=== PATIENT | female | born 1980 | race Caucasian/White ===

== ENCOUNTER 2017-07-12 07:29 | Day surgery (SDC) | payer OTHER, SELFPAY ==
[2017-07-12] VITALS (7 sets, daily range): BP systolic 111–128; BP diastolic 63–74; PULSE 69–78; RESP 16–18; TEMP 36.1–36.6; O2SAT 95–99; BMI 36.9
--- NOTE | 2017-07-12 | IMM_PTH ---
PATIENT: MIGUEL ÁNGEL AVILA LOC: EN U#:[id number] AGE/SX: 37/F ROOM: RE07/12/[address]: Dr. Pete Luna MD : 1980 BED: DIS: 07/12/2017 SPEC #: [id number] RECD: 07/15/17 12:46 STATUS: AUGUSTINA BRENTON #: [id number] SOILA: 07/12/17 00:[address]: Pete Luna DEPT: IMMUNOHISTOCHEMISTRY RECD BY: Lashay Estrada ENTERED: 07/15/17 12:47 SP TYPE: IMMUNO OTHR DR: Dr. Jus Luna III, MD Tissues: B - Stomach, NOS Procedures: H Pylori (initial) PHYSICIAN & INSTITUTION [place] [address] SPECIMEN INFORMATION: Tissue Source: B ? Antral biopsy Clinical Info: Abdominal pain Specimen Number: [id number] CPT code: 38152 METHODOLOGY: Deparaffinized sections of prefer/formalin-fixed tissue or PAP/DQ stained slides are incubated with monoclonal/polyclonal antibodies/oligonucleotide probes. Localization is made via biotin free immunoperoxidase method. Appropriate controls are performed and reacted as expected. Results on target cell population are indicated in the following table: RESULTS: ANTIBODY / CLONE RESULT Block B H Pylori (polyclonal) negative These tests were developed and their performance characteristics determined by [facility]. They may not have been cleared or approved by the U.S. Food and Drug Administration. The FDA has determined that such clearance or approval is not necessary. INTERPRETATION: B. Antral biopsy: Negative for Helicobacter pylori organisms. SJ:trino 07/16/17
--- NOTE | 2017-07-12 09:17 | EGD_PTH ---
PATIENT: MIGUEL ÁNGEL AVILA LOC: [facility] U#:[id number] AGE/SX: 37/F ROOM: RE07/12/[address]: Dr. Pete Luna MD : 1980 BED: DIS: 07/12/2017 SPEC #: [id number] RECD: 07/12/17 11:06 STATUS: AUGUSTINA BRENTON #: [id number] SOILA: 07/12/17 09:[address]: Pete Luna DEPT: SURGICAL PATHOLOGY RECD BY: Sesar Tafoya ENTERED: 07/12/17 12:01 SP TYPE: EGD BIOPSY OT DR: Dr. Jus Luna III, MD Tissues: A - Duodenum, NOS B - Gastric mucous membrane C - Esophageal mucous membrane Procedures: Surgery Specimen Level IV HEADER OPERATION: EGD PRE-OP DIAGNOSIS: Abdominal pain TISSUE SUBMITTED: A ? Duodenal biopsy, B ? Antral biopsy for H. pylori & path, C ? Distal esophageal biopsy MICROSCOPIC DIAGNOSIS A. Duodenal biopsy: Fragment of duodenal mucosa, no pathologic diagnosis. B. Antral biopsy: Mild gastritis. See microscopic description and comment. C. Distal esophageal biopsy: Fragment of squamous epithelium, no pathologic diagnosis. SJ:trino 07/15/17 COMMENT B. The results of immunohistochemistry for Helicobacter pylori will be reported separately ([id number]). MICROSCOPIC DESCRIPTION Slides are reviewed. B. The specimen shows fragments of gastric mucosa with chronic inflammatory cell infiltrates in the lamina propria consisting of lymphocytes and plasma cells, consistent with mild chronic gastritis. GROSS DESCRIPTION A - Received in fixative is one container labeled with the patient's name and designated duodenal biopsy. The specimen consists of one irregular fragment of light montoya soft tissue that measures 0.3 x 0.3 x 0.1 cm. The specimen is totally submitted in one cassette. B - Received in fixative is one container labeled with the patient's name and designated antral biopsy. The specimen consists of one irregular fragment of light montoya soft tissue that measures 0.3 x 0.3 x 0.1 cm. The specimen is totally submitted in one cassette. C - Received in fixative is one container labeled with the patient's name and designated distal esophageal biopsy. The specimen consists of one irregular fragment of light montoya soft tissue that measures 0.6 x 0.2 x 0.1 cm. The specimen is totally submitted in one cassette. / MARYA:trino 07/12/17 TC:3 CPT: 41564 x3
--- NOTE | 2017-07-12 09:35 | PCM.OPRPT ---
Problem List (1) Abdominal pain Status: Acute Qualifiers: Abdominal location: generalized Qualified Code(s): R10.84 - Generalized abdominal pain Report of Operation Date of Procedure: 07/12/17 Pre-Operative Diagnosis: Abdominal pain Post-Operative Diagnosis: Mild duodenitis, mild gastritis, hiatal hernia, possible distal esophagitis. Diamond colonic diverticulosis. No evidence of active colonic inflammation Surgery/Procedure Performed:: Esophagogastroduodenoscopy with biopsies. Colonoscopy Description of Surgical Findings:: Amount and informed consent was obtained. 87-year-old female was taken to the endoscopy suite. Her oropharynx anesthetized with Cetacaine. Throughout both the upper and lower procedure she received total of 150 mg Demerol and 5 mg of Versed is intravenous sedation. Under direct physician videogastroscope was inserted. The proximal mid distal esophagus did not appear to be remarkable. The EG junction was at 38 cm. She is a moderately large hiatal hernia. The scope was advanced into the stomach. Diffuse mild erythema of the entire stomach but particularly the antrum was noted. The scope was advanced through the pylorus. The first and second portions of the duodenum were inspected. Some friability of the duodenum noted. Cold forcep biopsy was obtained of the duodenum. The scope was withdrawn back to the stomach and biopsy was obtained of the antral area. The scope was retroflexed the hiatal hernia noted. Photographs were obtained. The scope was placed back in antegrade viewing position. Greater and lesser curvatures were inspected. There was no evidence of any ulceration or active bleeding. Excess fluid and air was aspirated free the scope was withdrawn to the distal esophagus and right at the Z line distal esophageal biopsies were obtained. Excess fluid and air was aspirated free the scope was withdrawn without additional abnormality. The patient was kept in left lateral decubitus position. Digital rectal exam performed. Normal anal tone. No mass lesions. Flexible colonoscope inserted in the rectum and quite readily advanced through the colon. Some minimal transabdominal pressure was required to get the scope to go to the cecum. The cecum and ileocecal valve area was nicely achieved. Bowel prep was good. The scope was carefully withdrawn from the ascending transverse descending and sigmoid colon. Extensive pancolonic diverticulosis was identified. I did not see any evidence of acute inflammation. The scope was retroflexed within the rectum anorectal verge inspected this was not remarkable. The rectosigmoid mucosa appeared normal. Excess fluid nurse aspirated free the procedure was completed with the patient tolerating it well. Impression Moderately large hiatal hernia. Mild duodenitis. Diamond gastric colitis. Possible mild distal esophagitis. Biopsies pending. Pancolonic diverticulosis with concentrated disease in the sigmoid The patient will be notified of pathology results as they become available. She is already on a proton pump inhibitor and sucralfate for her upper GI issues. I did not identify any active bleeding. I did not identify any active colonic disease. She has not had a previous colonoscopy. Next screening colonoscopy would be at age 52. Cc: Dr. Jus Luna, III Colonoscopy Meds were given 0911. The scope was inserted 0915. The cecum was reached at 0927. The procedure was completed at 0932. Pete Luna M.D., F.A.C.S. Type of Anesthesia:: IV Sedation
== END 2017-07-12 10:42 | disposition home or self-care (01) ==
LOC: EN 07:30 → AC 07:31
PROVIDERS: Family Provider Family Medicine; PCP Family Medicine; Visit Provider Surgery
PROC: 0DJD8ZZ Inspection of Lower Intestinal Tract, Via Natural or Artificial Opening Endoscopic (ICD-10-PCS; CPT 45378; principal; 2017-07-12 08:40)
DX: K29.80 Duodenitis without bleeding (principal); K29.70 Gastritis, unspecified, without bleeding; K44.9 Diaphragmatic hernia without obstruction or gangrene; K57.30 Diverticulosis of large intestine without perforation or abscess without bleeding; K52.9 Noninfective gastroenteritis and colitis, unspecified; K21.9 Gastro-esophageal reflux disease without esophagitis; Z87.19 Personal history of other diseases of the digestive system; Z90.49 Acquired absence of other specified parts of digestive tract; Z79.899 Other long term (current) drug therapy; Z72.0 Tobacco use
CPT/HCPCS: 43239; 45378; 88305; 88342; J7120

== ENCOUNTER → 2023-04-16 | Outpatient (CLI) | payer OTHER, SELFPAY ==
[2023-04-16 10:02] LABS: Absolute Lymphocyte Count 2.68 X10^3/uL (0.83-4.51); Absolute Neutrophil Count 5.7 X10^3/uL (2.0-7.7); Basophil# 0.04 X10^3/uL; Basophil% 0.4 % (0-1); Eosinophil# 0.22 X10^3/uL; Eosinophils% 2.4 % (0-5); Hematocrit 44.4 % (37-47); Hemoglobin 14.3 g/dL (12.0-15.0); Lymphocyte # 2.68 X10^3/ul (0.83-4.51); Lymphocyte % 29.3 % (19-41); Mean Corp Hgb Conc 32.2 g/dL (32-36); Mean Corpuscular Volume 87.1 fL (81-99); Mean Platelet Vol. 10.3 fl (6.2-12.0); Monocyte# 0.53 X10^3/uL; Monocyte% 5.8 % (0-10); NRBC Flagged by Analyzer 0 % (0-5); Neutrophil # 5.65 X10^3/uL (2.7-7.7); Neutrophil % 61.8 % (47-70); Platelet Count 264 K/mm3 (150-450); RBC Distribution Width CV 12.7 % (11.6-14.6); RBC Distribution Width SD 40.3 fl (35.1-43.9); White Blood Count 9.2 K/mm3 (4.4-11.0)
[2023-04-16 11:04] LABS: ALB/GLOB Ratio 0.8 RATIO (0.9-2.4); AST(SGOT) 19 U/L (15-37); Alanine Aminotransfer ALT/SGPT 30 U/L (13-56); Albumin, Serum 3.4 g/dL (3.2-5.0); Alkaline Phosphatase 88 U/L (45-117); Anion Gap 4 (5-15); BUN 13 mg/dL (7-18); BUN/Creat Ratio 16.8 RATIO (10-20); Calcium,Total 8.4 mg/dL (8.5-10.1); Chloride 110 mmol/L (98-107); Cholesterol 191 mg/dL (200); Creatinine, Serum 0.78 mg/dL (0.55-1.02); EST Glomerular Filtration Rate 87 mL/min (>60); Est Glom Filt Rate - Afr Amer 105 mL/min (>60); Globulin 4.2 g/dL (2.2-4.2); Glucose 86 mg/dL (74-106); High Density Lipoprotein 47 mg/dL; Potassium 3.8 mmol/L (3.5-5.1); Protein, Total 7.6 g/dL (6.4-8.2); Sodium Level 139 mmol/L (136-145); Triglycerides 145 mg/dL; Very Low Density Lipoprotein 29 mg/dL (5-40)
[2023-04-16 11:05] LABS: Hepatitis C Antibody Non-Reactive (Nonreactive); Vitamin D,25 Hydroxy 32.7 ng/mL
== END | disposition home or self-care (01) ==
LOC: MTLAB 09:21
PROVIDERS: PCP Family Medicine; Referring Provider Family Medicine; Visit Provider Family Medicine
DX: Z00.00 Encounter for general adult medical examination without abnormal findings (principal); Z13.21 Encounter for screening for nutritional disorder; Z11.59 Encounter for screening for other viral diseases; Z13.220 Encounter for screening for lipoid disorders; Z13.1 Encounter for screening for diabetes mellitus
CPT/HCPCS: 36415; 80053; 80061; 82306; 85025; 86803

== ENCOUNTER 2023-04-29 11:53 | Outpatient (CLI) | payer OTHER, SELFPAY ==
[2023-05-01 18:26] LABS: HPV Reflexed? NOT INDICATED
[2023-05-02 18:05] LABS: Chlamydia By Nucleic Acid AMP Negative; Gonococcus By Nucleic Acid AMP Negative
== END 2023-04-29 23:59 | disposition home or self-care (01) ==
LOC: LABSPEC 11:54
PROVIDERS: PCP Family Medicine; Referring Provider Family Medicine; Visit Provider Family Medicine
DX: Z12.4 Encounter for screening for malignant neoplasm of cervix (principal)
CPT/HCPCS: 87491; 87591; 88142

== ENCOUNTER → 2024-04-30 | Outpatient (CLI) | payer OTHER, SELFPAY ==
--- NOTE | 2024-04-30 09:45 | RAD_ITS ---
STUDY: X-RAY - RIGHT KNEE REASON FOR EXAM: Female, 44 years old. PAIN TECHNIQUE: 4 views of the right knee. COMPARISON: None. FINDINGS: Normal visualized distal femur. Normal visualized proximal tibia and fibula. Normal proximal tibiofibular articulation. There is no demonstrated fracture. Normal medial femorotibial compartment. Normal lateral femorotibial compartment. Normal patellofemoral articulation. There is a small volume joint effusion. The soft tissue structures are unremarkable. RAD/Knee 4 or More Views IMPRESSION: Small joint effusion. No demonstrated fracture. Electronically Signed: Sharif Mcclellan MD at 10:57 EST ,
== END | disposition home or self-care (01) ==
PROVIDERS: PCP Family Medicine
DX: M25.561 Pain in right knee (principal)
CPT/HCPCS: 73564